=== PATIENT | male | born 1975 | race Caucasian/White ===

== ENCOUNTER → 2020-09-29 16:28 | Outpatient (CLI) | payer OTHER, SELFPAY ==
--- NOTE | 2020-09-29 16:34 | DI.MRI.S_ITS ---
PROCEDURE: MR ANKLE RT WO CON INDICATIONS: Strain of muscle(s) and tendon(s) of peroneal muscle TECHNIQUE: Noncontrast sagittal T1 spin echo and T2 fast spin echo with fat saturation, axial proton density fast spin echo and T2 fast spin echo with fat saturation, coronal T1 spin echo and T2 fast spin echo with fat saturation through the ankle/hindfoot. COMPARISON: [facility], CR, XR FOOT 3 VIEWS WEIGHT BEARING RIGHT, 08/06/2020, 16:06. FINDINGS: Image quality: Excellent. Bones and joints: There is bone marrow edema within the anterior talus, navicular, cuboid, and minimal edema within the anterior calcaneus. Findings likely represent bone contusions but the differential includes stress reactions. There are associated small curvilinear low signal intensity lines within the anterior talus and the cuboid suggestive of nondisplaced fractures. No hindfoot coalitions. No osteochondral injuries of the talar dome. No pathologic joint effusions. There is periarticular subcutaneous edema. Medial structures: The posterior tibialis, flexor digitorum longus, and flexor hallucis longus tendons are intact. The posterior tibial neurovascular bundle appears normal within the tarsal tunnel, without extrinsic mass effect. The deltoid ligament components appear intact. The medioplantar oblique calcaneonavicular and inferoplantar longitudinal ligament components of the spring ligament are attenuated in signal with mild associated periligamentous edema compatible with ligamentous sprains. Lateral structures: The anterior talofibular, calcaneofibular, and posterior talofibular ligaments appear intact. More superiorly, the anterior and posterior tibiofibular ligaments appear intact, as is the intermalleolar ligament. The tibiofibular syndesmosis is normal in width at 2 mm or less. The peroneus longus and brevis tendons demonstrate normal location and morphology. Adjacent bony peroneal tubercle and retrotrochlear prominence are normal in size. The sinus tarsi demonstrates mild edema with partial effacement of the sinus tarsi fat anteriorly. The calcaneonavicular and calcaneocuboid components of the bifurcate ligament appear attenuated in signal with mild periligamentous edema consistent with mild ligamentous sprains. The dorsal calcaneocuboid ligament is also attenuated in signal compatible with sequelae of a mild sprain. Anterior structures: The tibialis anterior, extensor hallucis longus, and extensor digitorum longus tendons appear intact. The dorsal talonavicular ligament appears attenuated in signal with associated mild periligamentous edema consistent with sequelae of a mild sprain. Posterior and plantar structures: Achilles tendon is intact. Medial and lateral bands of the plantar fascia are of normal thickness. No abductor digiti quinti muscle atrophy to suggest [place] neuropathy. IMPRESSION: 1. Bone marrow edema within the anterior talus, navicular, cuboid, and anterior calcaneus consistent with probable bone contusions. The differential includes stress reactions. There are suspected associated nondisplaced fracture lines within the anterior talus and cuboid. 2. Sprains of the spring ligament components, bifurcate ligament, dorsal calcaneocuboid ligament, and dorsal talonavicular ligament as well as suspected sprains of the sinus tarsi ligaments anteriorly. The constellation of findings are suggestive of a midtarsal (Chopart) sprain. Recommend correlation with clinical history and exam. Dictated by: Efrem Morris M.D. on 09/30/2020 at 11:31 Approved by: Efrem Morris M.D. on 09/30/2020 at 11:51
== END ==
PROVIDERS: Referring Provider Orthopaedic Surgery Foot and Ankle Surgery; Visit Provider Orthopaedic Surgery Foot and Ankle Surgery
DX: S86.311A Strain of muscle(s) and tendon(s) of peroneal muscle group at lower leg level, right leg, initial encounter (principal); X58.XXXA Exposure to other specified factors, initial encounter
CPT/HCPCS: 73721